=== PATIENT | male | born 1970 | race Two or more races ===

== ENCOUNTER → 2018-08-01 | Outpatient (CLI) | payer OTHER | END | disposition home or self-care (01) | LOC: RAD 10:36 | PROVIDERS: ATTEND Family Medicine | DX: M48.061 Spinal stenosis, lumbar region without neurogenic claudication (principal); M51.36 Other intervertebral disc degeneration, lumbar region; M41.85 Other forms of scoliosis, thoracolumbar region | CPT/HCPCS: 72072; 72110 ==